=== PATIENT | female | born 1995 | race American Indian/Alaskan Native ===

== ENCOUNTER 2019-05-15 12:39 | Emergency (ER) | payer SELFPAY ==
--- NOTE | 2019-05-15 15:58 | Emergency Department Report ---
ED ENT HPI - General Chief complaint: Sore Throat Stated complaint: SORE THROAT/FEVER Source: patient Mode of arrival: Ambulatory Limitations: No Limitations - History of Present Illness Initial comments: 23 yo female c/o sore throat and fever x 3 days. She denies chest pain sob no nausea no vomiting. MD complaint: sore throat Location: throat Severity scale (0 -10): 3 Quality: sharp Consistency: constant Improves with: none Worsens with: none Associated Symptoms: fever, pain with swallowing, sore throat. denies: cough - Related Data Previous Rx's Medication Instructions Recorded Last Taken Type Penicillin V Potassium 500 mg PO BID 10 Days #20 tablet 05/15/19 Unknown Rx Allergies Allergy/AdvReac Type Severity Reaction Status Date / Time No Known Allergies Allergy Unverified 05/15/19 12:45 ED Dental HPI - General Chief complaint: Sore Throat Stated complaint: SORE THROAT/FEVER Source: patient Mode of arrival: Ambulatory Limitations: No Limitations - Related Data Previous Rx's Medication Instructions Recorded Last Taken Type Penicillin V Potassium 500 mg PO BID 10 Days #20 tablet 05/15/19 Unknown Rx Allergies Allergy/AdvReac Type Severity Reaction Status Date / Time No Known Allergies Allergy Unverified 05/15/19 12:45 ED Review of Systems ROS: Stated complaint: SORE THROAT/FEVER Other details as noted in HPI Comment: All other systems reviewed and negative Constitutional: fever Respiratory: other (sore throat ). denies: cough ED Past Medical Hx - Past Medical History Previous Medical History?: No - Surgical History Past Surgical History?: No - Social History Smoking Status: Current Every Day Smoker Substance Use Type: Marijuana - Medications Home Medications: Home Medications Medication Instructions Recorded Confirmed Last Taken Type Penicillin V Potassium 500 mg PO BID 10 Days #20 tablet 05/15/19 Unknown Rx ED Physical Exam - General Limitations: No Limitations General appearance: alert, in no apparent distress - Eye Eye exam: Present: normal appearance. Absent: scleral icterus, conjunctival injection - ENT ENT exam: Present: normal exam - Neck Neck exam: Present: normal inspection, lymphadenopathy - Respiratory Respiratory exam: Present: normal lung sounds bilaterally - Cardiovascular Cardiovascular Exam: Present: regular rate, normal rhythm - GI/Abdominal GI/Abdominal exam: Present: soft. Absent: distended, tenderness, guarding - Rectal Rectal exam: Present: deferred - Extremities Exam Extremities exam: Present: normal inspection - Neurological Exam Neurological exam: Present: alert, oriented X3 - Psychiatric Psychiatric exam: Present: normal affect - Skin Skin exam: Present: warm, dry, intact ED Course Vital Signs 05/15/19 12:42 Temperature 98.7 F Pulse Rate 104 H Respiratory 18 Rate Blood Pressure 117/52 O2 Sat by Pulse 99 Oximetry ED Medical Decision Making - Medical Decision Making 23 yr with c/o of sore throat. Rapid strep + . Treat with PCN Critical Care Time: No Critical care attestation.: If time is entered above; I have spent that time in minutes in the direct care of this critically ill patient, excluding procedure time. ED Disposition Clinical Impression: Strep pharyngitis Disposition: - TO HOME OR SELFCARE Is pt being admited?: No Does the pt Need Aspirin: No Condition: Stable Instructions: Strep Throat (ED) Additional Instructions: warm salt water gargles, take advil or tylenol for pain or fever as directed by package insert. Rest increase your fluid intake to 6-8 cups daily. Follow up with PCP or [facility] in 2-3 days Prescriptions: Penicillin V Potassium 500 mg PO BID 10 Days #20 tablet Referrals: PRIMARY CARE, [Primary Care Provider] - 3-5 Days Time of Disposition: 16:02
[2019-05-15 16:27] VITALS: BP 115/66
== END 2019-05-15 16:15 | disposition home or self-care (01) ==
LOC: ED 12:39
DX: J02.0 Streptococcal pharyngitis (principal)
CPT/HCPCS: 87430

== ENCOUNTER 2019-07-14 01:24 | Emergency (ER) | payer SELFPAY ==
[2019-07-14 02:25] LABS: Hematocrit 39.1 % (30.3-42.9); Hemoglobin 12.6 gm/dl (10.1-14.3); Mean Corpuscular HGB Conc 32 % (30-34); Mean Corpuscular Volume 77 fl (79-97); Platelet Count 303 K/mm3 (140-440); Red Blood Count 5.05 M/mm3 (3.65-5.03); Red Cell Distribution Width 16.1 % (13.2-15.2)
[2019-07-14 02:38] LABS: Bacteria,Urine 1+ /HPF (Negative); Bilirubin,Urine NEG (Negative); Blood,Urine NEG (Negative); Color,Urine Red (Yellow); Mucus,Urine 3+ /HPF; Protein,Urine <15 mg/dL mg/dL (Negative)
[2019-07-14 02:47] LABS: Alanine Aminotransferase 13 units/L (7-56); Albumin 4.5 g/dL (3.9-5); BUN/Creatinine Ratio 18; Blood Urea Nitrogen 11 mg/dL (7-17); Calcium 9.5 mg/dL (8.4-10.2); Hemolysis Index 3
[2019-07-14 03:49] LABS: Total Cells Counted 100
[2019-07-14 03:51] LABS: Platelet Estimate Consistent w Auto
--- NOTE | 2019-07-14 06:54 | Ultrasound Report ---
ULTRASOUND OBSTETRIC Indication: abd pain Findings: Fluid collection is noted in the uterus measuring 15.3 mm. This may represent a gestational sac. This would correspond to a 6 week 2 day gestation. No pole or yolk sac is seen within the structure however The ovaries are normal in appearance. There is no free fluid. There are no adnexal masses. Impression: There is a fluid collection in the uterus characteristic of a gestational sac. This measures 6 weeks 2 days. However, no yolk sac or pole is identified within this. Correlation with serum beta hCG level is recommended. Follow-up ultrasound should be obtained as is c linically warranted. Signer Name: Darryl Warren MD Signed: 07/14/2019 6:50 AM Workstation Name: [id number]
[2019-07-14] MEDS ORDERED: ONDANSETRON 4 MG/2 ML INJ IV ONE (07:55)
[2019-07-14] MEDS ORDERED: SODIUM CHLORIDE 0.9% 1000 ML 1,000 ML IV ONE (07:55)
--- NOTE | 2019-07-14 07:56 | Emergency Department Report ---
ED HPI - General Chief complaint: Abdominal Pain Stated complaint: EMESIS/ABD PAIN/6 WKS PREG Time Seen by Provider: 07/14/19 07:54 Source: patient Mode of arrival: Ambulatory Limitations: No Limitations - History of Present Illness Initial comments: 23 YO COMES TO ER "6W " WITH PAIN (SUPRAPUBIC) AND VOMITING. HAS NOT SEEN OBGYN YET. HAD POS HOME PREG TEST. . NO N/V IN ER NO FEVER NO BACK PAIN NO VAG BLEEDING OR DISCHARGE. -: Gradual, days(s) Consistency: constant Associated symptoms: nausea/vomiting, dysuria. denies: vaginal bleeding, vaginal discharge, abdominal pain, headache, vision changes, malaise, dysparuenia, rash, seizure, shortness of breath, syncope, weakness Vaginal bleeding: none :: Yes Number of weeks : 6 OB History - Current : no complications Last menstrual period: 06/05/19 Pre-jarrett care: none - Related Data : 3 Para: 2 Previous Rx's Medication Instructions Recorded Last Taken Type Nitrofurantoin [place]/M-Cryst 100 mg PO Q12HR #14 capsule 07/14/19 Unknown Rx [Macrobid CAP] Ondansetron [Zofran Odt] 4 mg PO Q8HR PRN #10 tab.rapdis 07/14/19 Unknown Rx Allergies Allergy/AdvReac Type Severity Reaction Status Date / Time No Known Allergies Allergy Unverified 05/15/19 12:45 ED Review of Systems ROS: Stated complaint: EMESIS/ABD PAIN/6 WKS PREG Other details as noted in HPI Comment: All other systems reviewed and negative ED Past Medical Hx - Past Medical History Previous Medical History?: No - Surgical History Past Surgical History?: Yes - Family History Family history: no significant - Social History Smoking Status: Never Smoker Substance Use Type: None - Medications Home Medications: Home Medications Medication Instructions Recorded Confirmed Last Taken Type Nitrofurantoin [place]/M-Cryst 100 mg PO Q12HR #14 capsule 07/14/19 Unknown Rx [Macrobid CAP] Ondansetron [Zofran Odt] 4 mg PO Q8HR PRN #10 tab.rapdis 07/14/19 Unknown Rx ED Physical Exam - General Limitations: No Limitations General appearance: alert, in no apparent distress - Head Head exam: Present: atraumatic, normocephalic - Eye Eye exam: Present: normal appearance - ENT ENT exam: Present: mucous membranes moist - Neck Neck exam: Present: normal inspection - Respiratory Respiratory exam: Present: normal lung sounds bilaterally. Absent: respiratory distress - Cardiovascular Cardiovascular Exam: Present: regular rate, normal rhythm. Absent: systolic murmur, diastolic murmur, rubs, gallop - GI/Abdominal GI/Abdominal exam: Present: soft, normal bowel sounds - Extremities Exam Extremities exam: Present: normal inspection - Back Exam Back exam: Present: normal inspection - Neurological Exam Neurological exam: Present: alert, oriented X3 - Psychiatric Psychiatric exam: Present: normal affect, normal mood - Skin Skin exam: Present: warm, dry, intact, normal color. Absent: rash ED Medical Decision Making - Lab Data Result diagrams: 07/14/19 01:42 07/14/19 01:42 - Radiology Data Radiology results: report reviewed, image reviewed - Medical Decision Making Labs 07/14/19 07/14/19 07/14/19 01:42 01:42 01:42 WBC 12.1 H RBC 5.05 H Hgb 12.6 Hct 39.1 MCV 77 L MCH 25 L MCHC 32 RDW 16.1 H Plt Count 303 Lymph # Fitness Sales Associate Add Manual Diff Complete Total Counted 100 Seg Neuts % (Manual) 43.0 Band Neutrophils % 0 Lymphocytes % (Manual) 48.0 H Reactive Lymphs % (Man) 0 Monocytes % (Manual) 6.0 Eosinophils % (Manual) 2.0 Basophils % (Manual) 1.0 Metamyelocytes % 0 Myelocytes % 0 Promyelocytes % 0 Blast Cells % 0 Nucleated RBC % Not Reportable Seg Neutrophils # Man 5.2 Band Neutrophils # 0.0 Lymphocytes # (Manual) 5.8 H Abs React Lymphs (Man) 0.0 Monocytes # (Manual) 0.7 Eosinophils # (Manual) 0.2 Basophils # (Manual) 0.1 Metamyelocytes # 0.0 Myelocytes # 0.0 Promyelocytes # 0.0 Blast Cells # 0.0 WBC Morphology Not Reportable Hypersegmented Neuts Not Reportable Hyposegmented Neuts Not Reportable Hypogranular Neuts Not Reportable Smudge Cells Not Reportable Toxic Granulation Not Reportable Toxic Vacuolation Not Reportable Dohle Bodies Not Reportable Pelger-Huet Anomaly Not Reportable Matthew Rods Not Reportable Platelet Estimate Consistent w auto Clumped Platelets Not Reportable Plt Clumps, EDTA Not Reportable Large Platelets Not Reportable Giant Platelets Not Reportable Platelet Satelliting Not Reportable Plt Morphology Comment Not Reportable RBC Morphology Not Reportable Dimorphic RBCs Not Reportable Polychromasia Not Reportable Hypochromasia Not Reportable Poikilocytosis Not Reportable Anisocytosis Not Reportable Microcytosis Not Reportable Macrocytosis Not Reportable Spherocytes Not Reportable Pappenheimer Bodies Not Reportable Sickle Cells Not Reportable Target Cells Not Reportable Tear Drop Cells Not Reportable Ovalocytes Not Reportable Helmet Cells Not Reportable [place] Bodies Not Reportable [place] Rings Not Reportable [place] Cells Not Reportable Bite Cells Not Reportable Crenated Cell Not Reportable Elliptocytes Rare Acanthocytes (Spur) Not Reportable Rouleaux Not Reportable Hemoglobin C Crystals Not Reportable Schistocytes Not Reportable Malaria parasites Not Reportable Christopher Bodies Not Reportable Hem Pathologist Commnt No Sodium 138 Potassium 3.8 Chloride 102.1 Carbon Dioxide 22 Anion Gap 18 BUN 11 Creatinine 0.6 L Estimated GFR > 60 BUN/Creatinine Ratio 18 Glucose 83 Calcium 9.5 Total Bilirubin < 0.20 AST 15 ALT 13 Alkaline Phosphatase 111 Total Protein 8.5 H Albumin 4.5 Albumin/Globulin Ratio 1.1 Lipase HCG, Qual Positive HCG, Quant Urine Color Urine Turbidity Urine pH Ur Specific [place] Urine Protein Urine Glucose (UA) Urine Ketones Urine Blood Urine Nitrite Urine Bilirubin Urine Urobilinogen Ur Leukocyte Esterase Urine WBC (Auto) Urine RBC (Auto) U Epithel Cells (Auto) Urine Bacteria (Auto) Urine Mucus 07/14/19 07/14/19 07/14/19 01:42 06:35 Unknown WBC RBC Hgb Hct MCV MCH MCHC RDW Plt Count Lymph # Add Manual Diff Total Counted Seg Neuts % (Manual) Band Neutrophils % Lymphocytes % (Manual) Reactive Lymphs % (Man) Monocytes % (Manual) Eosinophils % (Manual) Basophils % (Manual) Metamyelocytes % Myelocytes % Promyelocytes % Blast Cells % Nucleated RBC % Seg Neutrophils # Man Band Neutrophils # Lymphocytes # (Manual) Abs React Lymphs (Man) Monocytes # (Manual) Eosinophils # (Manual) Basophils # (Manual) Metamyelocytes # Myelocytes # Promyelocytes # Blast Cells # WBC Morphology Hypersegmented Neuts Hyposegmented Neuts Hypogranular Neuts Smudge Cells Toxic Granulation Toxic Vacuolation Dohle Bodies Pelger-Huet Anomaly Matthew Rods Platelet Estimate Clumped Platelets Plt Clumps, EDTA Large Platelets Giant Platelets Platelet Satelliting Plt Morphology Comment RBC Morphology Dimorphic RBCs Polychromasia Hypochromasia Poikilocytosis Anisocytosis Microcytosis Macrocytosis Spherocytes Pappenheimer Bodies Sickle Cells Target Cells Tear Drop Cells Ovalocytes Helmet Cells [place] Bodies Divernon Rings Carolyn Cells Bite Cells Crenated Cell Elliptocytes Acanthocytes (Spur) Rouleaux Hemoglobin C Crystals Schistocytes Malaria parasites Christopher Bodies Hem Pathologist Commnt Sodium Potassium Chloride Carbon Dioxide Anion Gap BUN Creatinine Estimated GFR BUN/Creatinine Ratio Glucose Calcium Total Bilirubin AST ALT Alkaline Phosphatase Total Protein Albumin Albumin/Globulin Ratio Lipase 37 HCG, Qual HCG, Quant 54677 H Urine Color Red Urine Turbidity Cloudy Urine pH 6.0 Ur Specific [place] 1.023 Urine Protein <15 mg/dl Urine Glucose (UA) Neg Urine Ketones Neg Urine Blood Neg Urine Nitrite Neg Urine Bilirubin Neg Urine Urobilinogen 2.0 Ur Leukocyte Esterase Lg Urine WBC (Auto) 8.0 H Urine RBC (Auto) 2.0 U Epithel Cells (Auto) 36.0 H Urine Bacteria (Auto) 1+ Urine Mucus 3+ LABS NOTED UA NOTED US NOTED VS NORMAL MANUAL DOCUMENTATION INDICATES BY RN. NO FEVER. NO TACHYCARDIA. NO CVA TENDERNESS NO VAG BLEEDING OR DISCHARGE HAS APPNIT 2 WITH HER OB MEDICATED IN ER EDUCATED ON FOLLOW UP WITH OBGYN IN 48 HOURS DC HOME WITH DC PLAN OF CARE AND RX - Differential Diagnosis RO ECTOPIC; RO AB Critical care attestation.: If time is entered above; I have spent that time in minutes in the direct care of this critically ill patient, excluding procedure time. ED Disposition Clinical Impression: Disposition: [id number]-01 TO HOME OR SELFCARE Is pt being admited?: No Does the pt Need Aspirin: No Condition: Stable Instructions: (ED) Additional Instructions: AVOID ALCOHOL/DRUGS TAKE DAILY VITAMIN- OVER THE COUNTER MEDS ORDERED TODAY PELVIC REST UNTIL SEEN BY OBGYN SEE OBGYN IN 48 HOURS FOR FOLLOW UP REFERRAL BELOW SHOULD YOU NEED IT STAY WELL HYDRATED Prescriptions: Nitrofurantoin [place]/M-Cryst [Macrobid CAP] 100 mg PO Q12HR #14 capsule Ondansetron [Zofran Odt] 4 mg PO Q8HR PRN #10 tab.rapdis PRN Reason: Vomiting Referrals: CHER GANDHI MD [Staff Physician] - 3-5 Days Time of Disposition: 08:02
[2019-07-14] MEDS ORDERED: cefTRIAXone/NS 1 GM/50 ML 1 GM/50 ML BAG IV ONE (07:59)
[2019-07-14] MEDS ORDERED: ACETAMINOPHEN 500 MG TAB PO ONE (07:59)
== END 2019-07-14 10:01 | disposition home or self-care (01) ==
LOC: ED 01:24
DX: O21.8 Other vomiting complicating pregnancy (principal); Z3A.01 Less than 8 weeks gestation of pregnancy; Z79.899 Other long term (current) drug therapy
CPT/HCPCS: 36415; 76801; 76817; 80053; 81001; 83690; 84702; 84703; 85007; 85025; 96365; 96375; 99284; J0696; J2405; J7030